=== PATIENT | male | born 1965 | race Caucasian/White ===

== ENCOUNTER 2023-08-18 05:05 | Day surgery (SDC) | payer OTHER ==
[~2023-08-18] VITALS: Ht 167.6 cm; Wt 68.5 kg
[2023-08-18] MEDS ORDERED: fentaNYL citrate 0.05 MG/ML VIAL ONE (07:29)
[2023-08-18] MEDS ORDERED: LIDOCAINE 2% 100 MG/5 ML UJET TP ONE (07:29)
[2023-08-18] MEDS ORDERED: fentaNYL citrate 0.05 MG/ML VIAL IVP SCH (08:45)
== END 2023-08-18 08:44 | disposition home or self-care (01) ==
LOC: MDS 05:05 → MMU 06:29 → MDS 08:44
PROVIDERS: ATTEND Internal Medicine Gastroenterology
DX: Z12.11 Encounter for screening for malignant neoplasm of colon (principal); D12.8 Benign neoplasm of rectum; E78.5 Hyperlipidemia, unspecified; F41.9 Anxiety disorder, unspecified; F32.A Depression, unspecified; M19.90 Unspecified osteoarthritis, unspecified site; Z80.42 Family history of malignant neoplasm of prostate; Z79.899 Other long term (current) drug therapy; Z98.890 Other specified postprocedural states
CPT/HCPCS: 45380; J3010